=== PATIENT | female | born 1970 | race Caucasian/White ===

== ENCOUNTER 2018-07-29 06:12 | Day surgery (SDC) | payer OTHER ==
[2018-07-22 09:28] LABS: HEMATOCRIT 40.7 % (36.0-47.0); HEMOGLOBIN 13.6 g/dL (12.0-15.5); MEAN CORPUSCULAR HEMOGLOBIN 30.9 pg (27.0-33.4); MEAN CORPUSCULAR HGB CONC 33.5 g/dL (32.0-36.0); MEAN CORPUSCULAR VOLUME 92 fl (80-97); PLATELET COUNT 302 10^3/uL (150-450); RED BLOOD COUNT 4.41 10^6/uL (3.72-5.28); RED CELL DISTRIBUTION WIDTH 14.6 % (11.5-14.0); WHITE BLOOD COUNT 8.8 10^3/uL (4.0-10.5)
[2018-07-22 09:31] LABS: APPEARANCE,URINE SLIGHTLY-CLOUDY; BILIRUBIN,URINE NEGATIVE (NEGATIVE); COLOR,URINE YELLOW; GLUCOSE, URINE NEGATIVE (NEGATIVE); KETONES,URINE NEGATIVE (NEGATIVE); LEUKOCYTE ESTERASE,URINE NEGATIVE (NEGATIVE); NITRITE,URINE NEGATIVE (NEGATIVE); PROTEIN,URINE NEGATIVE (NEGATIVE); URINE SPECIFIC GRAVITY 1.013; UROBILINOGEN,URINE NEGATIVE mg/dL (<2.0)
[2018-07-22 09:50] LABS: ANION GAP 12 (5-19); BLOOD UREA NITROGEN 13 mg/dL (7-20); CALCIUM 9.1 mg/dL (8.4-10.2); CARBON DIOXIDE 28 mmol/L (22-30); CHLORIDE 98 mmol/L (98-107); GLUCOSE 202 mg/dL (75-110); SODIUM 137.9 mmol/L (137-145)
--- NOTE | 2018-07-22 11:04 | EKG REPORT ---
SEVERITY:- NORMAL ECG - SINUS RHYTHM : Confirmed by: Hernesto Huff MD 22-Jul-2018 11:03:59
[~2018-07-29 06:12] MED LIST: CEFAZOLIN 2 GM/D5W RTU 2 GM/50 ML RTUPB IV ONE; CEFAZOLIN 2 GM/D5W RTU 2 GM/50 ML RTUPB IV PRN; GABAPENTIN 300 MG CAPSULE ONE; GABAPENTIN 300 MG CAPSULE PO PRN; LACTATED RINGERS 1000 ML IV PRN; LIDOCAINE 0.5% INJ-PF (5 MG/ML) 50 ML SDV SUBCUT PRN
[2018-07-29] MEDS ORDERED: PROMETHAZINE HCL INJ 25 MG/1 ML VIAL ONE (06:54)
[2018-07-29] MEDS ORDERED: MIDAZOLAM 2 MG/2 ML INJ ONE (06:54)
[2018-07-29] MEDS ORDERED: ONDANSETRON HCL INJ/PF 4 MG/2 ML SDV ONE (06:54)
[2018-07-29] MEDS ORDERED: EPHEDRINE SULFATE INJ 50 MG/1 ML AMPULE ONE (06:54)
[2018-07-29] MEDS ORDERED: FENTANYL CITRATE INJ/PF 250 MCG/5 ML AMPULE ONE (06:54)
[2018-07-29] MEDS ORDERED: DEXAMETHASONE SOD PHOSPHATE INJ 4 MG/1 ML VIAL ONE (06:54)
[2018-07-29] MEDS ORDERED: HYDROMORPHONE HCL INJ/PF 2 MG/ML AMPULE ONE (06:54)
[2018-07-29] MEDS ORDERED: ACETAMINOPHEN 1,000 MG/100 ML RTUPB IV ONE (06:55)
[2018-07-29] MEDS ORDERED: PROPOFOL INJ 200 MG/20 ML VIAL IV ONE (06:55)
[2018-07-29] MEDS ORDERED: LIDOCAINE 0.5% INJ-PF (5 MG/ML) 50 ML SDV ONE (06:55)
[2018-07-29] MEDS ORDERED: BUPIVACAINE HCL 0.25 % INJ/PF (2.5 MG/1 ML) 30 ML VIAL ONE (07:21)
[2018-07-29 07:32] LABS: POTASSIUM 4.2 mmol/L (3.6-5.0)
[2018-07-29] MEDS ORDERED: MORPHINE SULFATE 10 MG/ML INJ IV PRN (08:55)
[2018-07-29] MEDS ORDERED: FENTANYL CITRATE INJ/PF 100 MCG/2 ML AMPUL IV PRN ×2 (08:55)
[2018-07-29] MEDS ORDERED: PROMETHAZINE HCL INJ 25 MG/1 ML VIAL IV PRN ×2 (08:55)
[2018-07-29] MEDS ORDERED: MEPERIDINE HCL/PF INJ 25 MG/1 ML DISP.SYRIN IV PRN (08:55)
[2018-07-29] MEDS ORDERED: DIPHENHYDRAMINE HCL 50 MG/ML VIAL IV PRN (08:55)
[2018-07-29] MEDS ORDERED: ROCURONIUM BROMIDE INJ 50 MG/5 ML VIAL IV ONE ×2 (09:53→09:54)
[2018-07-29] MEDS ORDERED: GLYCOPYRROLATE 1 MG/5 ML SYRINGE ONE (09:53)
[2018-07-29] MEDS ORDERED: SUCCINYLCHOLINE CHLORIDE INJ 200 MG/10 ML VIAL ONE (09:53)
[2018-07-29] MEDS ORDERED: NEOSTIGMINE METHYLSULFATE 10 MG/10 ML VIAL ONE (09:53)
[2018-07-29] MEDS ORDERED: FENTANYL CITRATE INJ/PF 100 MCG/2 ML AMPUL ONE (11:35)
[2018-07-29] MEDS: FENTANYL CITRATE INJ/PF 100 MCG/2 ML AMPUL IV PRN ×2 (11:35→11:40)
--- NOTE | 2018-07-29 11:53 | Discharge Summary ---
Discharge Summary (SDC) - Discharge Final Diagnosis: Menorrhagia Uterine fibroids Date of Surgery: 07/29/18 Discharge Date: 07/29/18 Condition: Good Forms: Post Operative Treatment or Instructions: Robotic assisted, total laparoscopic hysterectomy and bilateral salpingectomy Referrals: JORGE LUIS QUINTANA MD [NO LOCAL MD] - (For clinical concerns call GIFTY Olvera at . To schedule your post-op appointments for 2 and 6 weeks following surgery call Mrs. Tellez at .) Discharge Diet: As Tolerated Respiratory Treatments at Home: Deep Breathing/Coughing, Incentive Spirometer Discharge Activity: Activity As Tolerated, Balance Activity w/Rest, No Lifting Over 10 Pounds, Pelvic Rest, Slowly Increase Activity, Walk Frequently Home Care Assistance: None Needed Report the Following to Your Physician Immediately: Vomiting, Increase in Pain, Fever over 101 Degrees, Unusual Bleeding, Drainage-Yellow, Drainage-Foul Smelling, Increased Vaginal Bleed, Wheezing, IV Site Infection Signs, Urinary Infection Signs
[2018-07-29] MEDS ORDERED: MORPHINE SULFATE 10 MG/ML INJ ONE (12:07)
[2018-07-29] MEDS ORDERED: OXYCODONE-ACETAMINOPHEN 5-325 MG TABLET PO PRN ×2 (12:21→14:14)
[2018-07-29] MEDS ORDERED: ONDANSETRON HCL INJ/PF 4 MG/2 ML SDV IV PRN ×2 (12:22→14:14)
[2018-07-29 18:41] VITALS: BP 147/97
--- NOTE | 2018-09-02 10:59 | OPERATIVE REPORT E ---
Operative Report NAME: LUCIA MELÉNDEZ : 1970 AGE: 48Y DATE OF SURGERY: 07/29/2018 ROOM: 226 PREOPERATIVE DIAGNOSES: 1. Abnormal uterine bleeding after endometrial ablation. 2. Dysmenorrhea. 3. Menorrhagia. 4. Uterine fibroid. POSTOPERATIVE DIAGNOSES: 1. Abnormal uterine bleeding after endometrial ablation. 2. Dysmenorrhea. 3. Menorrhagia. 4. Uterine fibroid. 5. Suspected adenomyosis. OPERATION: Robotic-assisted total laparoscopic hysterectomy and bilateral salpingectomy. SURGEON: JORGE LUIS QUINTANA M.D. ANESTHESIA: General. COMPLICATIONS: None. ESTIMATED BLOOD LOSS: 100 mL. URINE OUTPUT: Clear at the end of the procedure. SPECIMENS: Uterus, cervix, and bilateral fallopian tubes. FINDINGS: Enlarged uterus approximately 11 x 6 x 5 cm with a small intramural fibroid notable. Fallopian tubes with evidence of previous tubal ligation. Otherwise normal pelvic findings. INDICATIONS: This is a 48-year-old 1, para 1 female with a history of abnormal uterine bleeding refractory to medical management and surgical management with endometrial ablation. After discussing the risks, benefits, and alternatives, including, but not limited to, observation, further medical management, repeat endometrial ablation, operative hysteroscopy, open abdominal hysterectomy, and total vaginal hysterectomy, were all discussed with her, she elected for the above procedure. PROCEDURE: After the patient was properly consented she was taken to the operating room where general anesthesia was found to be adequate. She was transferred to a dorsal lithotomy position using adjustable Marco stirrups, prepped and draped in the usual sterile fashion. A surgical time out was held. Lauren catheter was placed in the bladder and a VCare uterine manipulator was placed in the typical fashion. Gloves were changed and I proceeded above where the 0.25% plain Marcaine local anesthetic was used to initiate local anesthesia at the umbilical incision site. Then, a 12 mm skin incision was made with the scalpel followed by a Veress needle introduced into the peritoneal cavity with correct placement ascertained by a drop in CO2 pressure to 0 mmHg. Pneumoperitoneum was established to a pressure of 15 mmHg. A 12 mm bladeless trocar was advanced into the pneumoperitoneum and immediate visualization with the camera demonstrated an atraumatic entry. She was placed in a slight Trendelenburg and then we subsequently placed 2 right and 1 left lateral 8 mm ports following the typical routine of local anesthetic followed by a skin incision and placement of the port under direct visualization with the camera. All ports were in place and the patient was put in steep Trendelenburg position. The robot was docked and the instruments were placed into the robotic arms. At that time I scrubbed out and proceeded to the robotic console. The pelvic anatomy was inspected and the findings were noted above. The ureters were identified by peristalsis in their usual course at the pelvic brim bilaterally. Dissection was begun on the right using the bipolar vessel sealer and the bipolar fenestrated graspers. The fallopian tube was dissected from the tubo-ovarian ligament, and this dissection was continued along the lateral portion of the uterine body to the round ligament. The round ligament was then dissected and transected using the bipolar cautery. Next, the broad ligament was opened and the bladder flap was created anteriorly and inferiorly. Next, the uterine artery was identified, dissected out, cauterized, and transected at the area next to the uterine lower segment. Then, the dissection was continued along the side of the cervix to the top of the SHAYLA ring. The same dissection was repeated on the left side. The areas of dissection were noted to be hemostatic. Next, the edge of the VCare cervical cup was identified and the colpotomy was initiated using the bipolar cautery. Next, the vessel sealer was switched out for the monopolar scissors. The monopolar scissors were used to finish the colpotomy and carry it around circumferentially until the specimen was free and pulled through the vagina. The vaginal cuff was then closed after the monopolar scissors were switched out for the needle retail delivery driver. With a running V-Loc suture of 2-0 Monocryl, I incorporated the uterosacral pedicle for support of the vaginal apex. The pelvis was then irrigated copiously and hemostasis was noted to be excellent. FloSeal agent was applied over the vaginal cuff. The abdomen was deflated and the robot was undocked, and all instruments were removed. Next, the patient was taken out of Trendelenburg and attention was turned to the 12 mm incision. The fascia was closed with 0-Vicryl suture in a [id number] fashion. Next, the skin of the 8 mm incision and the 12 mm incision were closed with 4-0 Monocryl in a subcuticular fashion and a Dermabond dressing was applied. The Lauren was removed from the bladder and a sponge stick was inserted into the vagina to ensure there was no heavy bleeding. Hemostasis appeared to be excellent. The anesthesia was reversed. Sponge, lap, and needle counts were correct at the end of the procedure, and the patient was taken to the PACU in stable condition. DICTATING PHYSICIAN: JORGE LUIS QUINTANA M.D. [id number] PHY#: [id number] ID: [id number] JOB#: [id number] ACCT: [id number] cc:JORGE LUIS QUINTANA M.D. >
== END 2018-07-29 18:59 | disposition home or self-care (01) ==
LOC: OROUT 06:12 → 2S 13:29 → OROUT 18:59
PROVIDERS: ATTEND Obstetrics & Gynecology
DX: N93.9 Abnormal uterine and vaginal bleeding, unspecified (principal); N94.6 Dysmenorrhea, unspecified; N92.0 Excessive and frequent menstruation with regular cycle; D25.1 Intramural leiomyoma of uterus; I10 Essential (primary) hypertension; E11.9 Type 2 diabetes mellitus without complications; K21.9 Gastro-esophageal reflux disease without esophagitis; E66.9 Obesity, unspecified; Z68.41 Body mass index [BMI] 40.0-44.9, adult; Z79.899 Other long term (current) drug therapy; Z79.82 Long term (current) use of aspirin; Z79.84 Long term (current) use of oral hypoglycemic drugs
CPT/HCPCS: 93005; 86900; 86901; 36415 ×3; 86850; 82962; 82947; 84132; 85027; 81025; 80048; 81001; 88307 ×2; 93010; 58571; J2250; J3490 ×3; J1100; J3010 ×2; J2270; J2550; J0330; J2405; J2704; J0690; J0131; S2900; 840; J1170

== ENCOUNTER → 2019-10-20 | Outpatient (CLI) | payer OTHER ==
--- NOTE | 2019-10-20 10:20 | RADIOLOGY REPORT (SQ) ---
EXAM DESCRIPTION: CHEST PA/LATERAL IMAGES COMPLETED DATE/TIME: 10/20/2019 9:20 am REASON FOR STUDY: E66.01 MORBID (SEVERE) OBESITY DUE TO EXCESS CALORIES COMPARISON: None. EXAM PARAMETERS: NUMBER OF VIEWS: two views TECHNIQUE: Digital Frontal and Lateral radiographic views of the chest acquired. RADIATION DOSE: NA LIMITATIONS: none FINDINGS: LUNGS AND PLEURA: No opacities, masses or pneumothorax. No pleural effusion. MEDIASTINUM AND HILAR STRUCTURES: No masses or contour abnormalities. HEART AND VASCULAR STRUCTURES: Heart normal size. No evidence for failure. BONES: No acute findings. HARDWARE: None in the chest. OTHER: No other significant finding. IMPRESSION: NO SIGNIFICANT RADIOGRAPHIC FINDING IN THE CHEST. TECHNICAL DOCUMENTATION: JOB ID: [id number] 2010 [employer]- All Rights Reserved Reading location - IP/workstation name: [email or web address]
--- NOTE | 2019-10-20 14:18 | EKG REPORT ---
SEVERITY:- NORMAL ECG - SINUS RHYTHM : Confirmed by: Kalyani Paulson MD 20-Oct-2019 14:18:06
== END ==
LOC: OD 08:56
PROVIDERS: ATTEND Surgery
DX: E66.01 Morbid (severe) obesity due to excess calories (principal)
CPT/HCPCS: 71046; 93005; 93010

== ENCOUNTER → 2019-10-25 | Outpatient (CLI) | payer OTHER ==
[2019-10-25 11:27] LABS: ABSOLUTE BASOPHILS # (AUTO) 0.1 10^3/uL (0.0-0.2); ABSOLUTE EOSINOPHILS # (AUTO) 0.4 10^3/uL (0.0-0.6); ABSOLUTE LYMPHOCYTES (AUTO) 3.4 10^3/uL (0.5-4.7); ABSOLUTE MONOCYTES (AUTO) 0.5 10^3/uL (0.1-1.4); ABSOLUTE NEUT (AUTO) 3.8 10^3/uL (1.7-8.2); BASOPHILS % (AUTO) 0.6 % (0-2); EOSINOPHILS % (AUTO) 4.6 % (0-6); HEMATOCRIT 38.1 % (36.0-47.0); LYMPHOCYTES % (AUTO) 42.1 % (13-45); MEAN CORPUSCULAR HEMOGLOBIN 30.3 pg (27.0-33.4); MEAN CORPUSCULAR HGB CONC 34.2 g/dL (32.0-36.0); MEAN CORPUSCULAR VOLUME 89 fl (80-97); MONOCYTES % (AUTO) 6.4 % (3-13); PLATELET COUNT 306 10^3/uL (150-450); RED BLOOD COUNT 4.29 10^6/uL (3.72-5.28); RED CELL DISTRIBUTION WIDTH 14.2 % (11.5-14.0); SEGMENTED NEUTROPHILS % (AUTO) 46.3 % (42-78); TOTAL CELLS COUNTED % (AUTO) 100 %; WHITE BLOOD COUNT 8.1 10^3/uL (4.0-10.5)
[2019-10-25 11:49] LABS: ANION GAP 7 (5-19); BLOOD UREA NITROGEN 13 mg/dL (7-20); CALCIUM 9.3 mg/dL (8.4-10.2); CARBON DIOXIDE 30 mmol/L (22-30); CHLORIDE 98 mmol/L (98-107); GLUCOSE 192 mg/dL (75-110); POTASSIUM 3.6 mmol/L (3.6-5.0)
== END ==
LOC: OD 09:38
PROVIDERS: ATTEND Surgery
DX: E66.01 Morbid (severe) obesity due to excess calories (principal)
CPT/HCPCS: 36415; 80048; 84443; 85025